=== PATIENT | male | born 1950 | race Caucasian/White ===

== ENCOUNTER 2022-05-09 20:11 | Inpatient (IN) | payer MEDICARE ==
[2022-05-09] MEDS ORDERED: Ondansetron PF 4 MG/2 ML Vial IVP PRN (23:12)
[2022-05-09] MEDS ORDERED: Nitroglycerin 0.4 MG TAB (25 Tab Bottle) SL PRN (23:12)
[2022-05-09] MEDS ORDERED: Sodium Chloride 0.9% 1,000 ML IV SCH (23:15)
[2022-05-10] MEDS ORDERED: Famotidine 20 MG TAB PO SCH (00:15)
[2022-05-10 02:18] LABS: #Eosinphils 0.1 thou/uL (0.0-0.7); #Lymphocytes 2.5 thou/uL (1.20-3.40); #Monocytes 0.6 thou/uL (0.11-0.59); #Neutrophils 3.4 thou/uL (1.40-6.50); %Basophils 0.4 % (0.0-1.0); %Eosinophils 1.3 % (0.0-10.0); %Lymphocytes 37.4 % (21.0-51.0); %Monocytes 9.3 % (0.0-10.0); %Neutrophils 51.7 % (42.0-75.0); Hemoglobin 12.9 g/dL (14.0-18.0); Mean Corpuscular HGB CONC 34.1 g/dL (32.0-36.0); Mean Corpuscular Hemoglobin 31.8 pg (27.0-31.0); Mean Corpuscular Volume 93.2 fL (78.0-98.0); Mean Platelet Volume 6.7 fL (7.4-10.4); Platelet Count 184 thou/uL (130-400); RBC Distribution Width 11.4 % (11.5-14.5); Red Blood Cell (RBC) Count 4.05 mill/uL (4.70-6.10); White Blood Cell (WBC) Count 6.6 thou/uL (4.8-10.8)
[2022-05-10 02:43] LABS: Troponin I 0.017 ng/mL (< 0.028)
[2022-05-10 02:57] LABS: Anion Gap 13 mmol/L (10-20); BUN (Urea Nitrogen) 11 mg/dL (8.4-25.7); Calc. Creatinine Clearance 83 mL/min (70-130); Calcium 9.1 mg/dL (7.8-10.44); Carbon Dioxide 26 mmol/L (23-31); Chloride 102 mmol/L (98-107); Estimated GFR 62; Glucose 126 mg/dL (83-110); Potassium 4.8 mmol/L (3.5-5.1); Sodium 136 mmol/L (136-145)
[2022-05-10] MEDS ORDERED: Lorazepam 2 MG/ML VIAL IM PRN (03:47)
[2022-05-10] MEDS ORDERED: Lorazepam 1 MG TAB PO PRN (03:47)
[2022-05-10] MEDS ORDERED: Electrolyte Replacement Protocol 1 EACH FS SCH (04:00)
[2022-05-10] MEDS: Thiamine HCl 200 MG/2 ML VIAL SLOW IVP SCH (05:50)
[2022-05-10] MEDS ORDERED: Clopidogrel Bisulfate 75 MG TAB PO SCH (09:00)
[2022-05-10] MEDS ORDERED: Enoxaparin Sodium 40 MG/0.4 ML SYRINGE SC SCH (09:00)
[2022-05-10] MEDS ORDERED: Communication Order-Pharmacy FS SCH (10:00)
[2022-05-10] MEDS: Sodium Chloride 0.9% 1,000 ML IV SCH (10:26)
[2022-05-10] MEDS ORDERED: Verapamil 5 MG/2 ML VIAL ONE (10:52)
[2022-05-10] MEDS ORDERED: Heparin 10,000 UNITS/ 10 ML VIAL ONE ×2 (10:52→12:40)
[2022-05-10] MEDS ORDERED: Nitroglycerin 100MG/250ML BOT 250 ML ONE (10:52)
[2022-05-10] MEDS ORDERED: Iopamidol 370 76% 100 ML VIAL ONE (11:19)
[2022-05-10] MEDS ORDERED: Midazolam HCl 2 mg/2 ml Vial ONE (12:22)
[2022-05-10] MEDS ORDERED: Fentanyl 100 MCG/2 ML VIAL ONE (12:22)
[2022-05-10] MEDS ORDERED: Sodium Chloride 0.9% 1,000 ML IV SCH (14:30)
[2022-05-10] MEDS: Multivit, Therapeutic 1 TAB PO SCH (17:27)
[2022-05-10] MEDS: Lisinopril 20 MG TAB PO SCH ×2 (17:27→20:27)
[2022-05-10] MEDS: Folic Acid 1 MG TAB PO SCH (17:27)
[2022-05-10] MEDS: Aspirin Chewable 81 MG TAB PO SCH (17:27)
[2022-05-10] MEDS: Carvedilol 6.25 MG TAB PO SCH ×2 (17:27→20:27)
[2022-05-10] MEDS: Rosuvastatin 20 MG TAB PO SCH (20:27)
[2022-05-10] MEDS: Acetaminophen 325 MG TAB PO PRN (23:50)
[2022-05-11] MEDS ORDERED: Lorazepam 1 MG TAB PO PRN (03:47)
[2022-05-11 04:39] LABS: #Eosinphils 0.1 thou/uL (0.0-0.7); #Lymphocytes 1.5 thou/uL (1.20-3.40); #Monocytes 0.5 thou/uL (0.11-0.59); %Basophils 0.3 % (0.0-1.0); %Eosinophils 1.8 % (0.0-10.0); %Monocytes 7.7 % (0.0-10.0); %Neutrophils 65.2 % (42.0-75.0); Mean Corpuscular HGB CONC 34.1 g/dL (32.0-36.0); Mean Corpuscular Hemoglobin 32.3 pg (27.0-31.0); Mean Corpuscular Volume 94.9 fL (78.0-98.0); Mean Platelet Volume 6.9 fL (7.4-10.4); Platelet Count 194 thou/uL (130-400); RBC Distribution Width 11.3 % (11.5-14.5); Red Blood Cell (RBC) Count 4.03 mill/uL (4.70-6.10); White Blood Cell (WBC) Count 6.1 thou/uL (4.8-10.8)
[2022-05-11] MEDS: Thiamine HCl 200 MG/2 ML VIAL SLOW IVP SCH (04:50)
[2022-05-11 04:59] LABS: ALT (SGPT) 21 U/L (8-55); AST (SGOT) 20 U/L (5-34); Albumin 3.9 g/dL (3.4-4.8); Alkaline Phosphatase 45 U/L (40-110); Anion Gap 12 mmol/L (10-20); BUN (Urea Nitrogen) 10 mg/dL (8.4-25.7); Bilirubin, Total 0.7 mg/dL (0.2-1.2); Calc. Creatinine Clearance 97 mL/min (70-130); Calcium 9.1 mg/dL (7.8-10.44); Carbon Dioxide 26 mmol/L (23-31); Chloride 102 mmol/L (98-107); Estimated GFR 75; Globulin 2.9 g/dL (2.4-3.5); Glucose 131 mg/dL (83-110); Potassium 3.9 mmol/L (3.5-5.1); Protein, Total 6.8 g/dL (5.8-8.1); Sodium 136 mmol/L (136-145)
[2022-05-11] MEDS: Folic Acid 1 MG TAB PO SCH (07:50)
[2022-05-11] MEDS: Multivit, Therapeutic 1 TAB PO SCH (07:50)
[2022-05-11] MEDS: Lisinopril 20 MG TAB PO SCH ×2 (07:50→20:21)
[2022-05-11] MEDS: Aspirin Chewable 81 MG TAB PO SCH (07:50)
[2022-05-11] MEDS: Acetaminophen 325 MG TAB PO PRN (07:50)
[2022-05-11] MEDS: Carvedilol 6.25 MG TAB PO SCH (07:50)
[2022-05-11] MEDS ORDERED: Communication Order-Pharmacy FS PRN (09:28)
[2022-05-11 10:22] LABS: Cholesterol 133 mg/dl (< 200 Desired); HDL Cholesterol 44 mg/dL (>60 Neg Risk); LDL Cholesterol, Calculated 64 mg/dL; Triglycerides 125 mg/dL (Less than 150)
[2022-05-11 10:33] LABS: Hemoglobin A1c 7.3 % (4.0-6.0)
[2022-05-11] MEDS: Sodium Chloride 0.9% 1,000 ML IV SCH (19:30)
[2022-05-11] MEDS: Metoprolol Tartrate 25 MG TAB PO SCH (20:19)
[2022-05-11] MEDS: Rosuvastatin 20 MG TAB PO SCH (20:22)
[2022-05-11] MEDS ORDERED: Calcium Carbonate 500 MG ChewTAB PO PRN (20:51)
[2022-05-11] MEDS: Famotidine 20 MG TAB PO SCH (23:08)
[2022-05-12] MEDS ORDERED: Lorazepam 1 MG TAB PO PRN (03:47)
[2022-05-12] MEDS: Thiamine HCl 200 MG/2 ML VIAL SLOW IVP SCH (04:38)
[2022-05-12] MEDS: Lisinopril 20 MG TAB PO SCH ×2 (08:59→22:21)
[2022-05-12] MEDS: Famotidine 20 MG TAB PO SCH ×2 (08:59→22:20)
[2022-05-12] MEDS: Folic Acid 1 MG TAB PO SCH (08:59)
[2022-05-12] MEDS: Metoprolol Tartrate 25 MG TAB PO SCH ×2 (09:00→22:21)
[2022-05-12] MEDS: Multivit, Therapeutic 1 TAB PO SCH (09:00)
[2022-05-12] MEDS ORDERED: Empagliflozin 10 MG TAB PO SCH (09:00)
[2022-05-12] MEDS ORDERED: CEFAZOLIN 2 GM in Sodium Chloride 0.9% 100 ML IVPB SCH (14:30)
[2022-05-12] MEDS: Rosuvastatin 20 MG TAB PO SCH (22:21)
[2022-05-13] MEDS ORDERED: Lorazepam 0.5 MG TAB PO PRN (03:47)
[2022-05-13] MEDS: Lisinopril 20 MG TAB PO SCH (06:12)
[2022-05-13] MEDS: Metoprolol Tartrate 25 MG TAB PO SCH (06:12)
[2022-05-13] MEDS ORDERED: Thiamine 100 MG TAB PO SCH (09:00)
[2022-05-13] MEDS: Famotidine 20 MG TAB PO SCH (09:02)
[2022-05-13] MEDS: Multivit, Therapeutic 1 TAB PO SCH (09:02)
[2022-05-13] MEDS: Folic Acid 1 MG TAB PO SCH (09:02)
[2022-05-13] MEDS ORDERED: Albumin 5% 500 ML ONE (10:09)
[2022-05-13] MEDS ORDERED: Dexmedetomidine 200 MCG/2 ML VIAL ONE (10:43)
[2022-05-13] MEDS ORDERED: fentaNYL Citrate/PF 100 MCG/2 ML SYRINGE ONE (10:43)
[2022-05-13] MEDS ORDERED: Midazolam HCl 5 mg/5 ml Vial ONE (10:43)
[2022-05-13] MEDS ORDERED: Phenylephrine 10 MG/ML VIAL ONE (10:43)
[2022-05-13] MEDS ORDERED: Lidocaine 1% MPF 2 ML VIAL ONE ×2 (11:05→11:38)
[2022-05-13] MEDS ORDERED: Sodium Chloride 0.9% 100 ML ONE (11:27)
[2022-05-13] MEDS ORDERED: CEFAZOLIN 2 GM VIAL ONE (11:27)
[2022-05-13] MEDS ORDERED: Cardioplegic Soln 1,000 ML BAG ONE (11:38)
[2022-05-13] MEDS ORDERED: Heparin 5,000 UNITS/ML VIAL ONE (11:38)
[2022-05-13] MEDS ORDERED: Mannitol 12.5 GM/50 ML ONE (11:38)
[2022-05-13] MEDS ORDERED: Vecuronium 10 MG VIAL ONE (11:38)
[2022-05-13] MEDS ORDERED: Rocuronium Bromide 10 MG/ML (10ML VIAL) ONE (11:38)
[2022-05-13] MEDS ORDERED: Protamine Sulfate 250 MG/25 ML VIAL ONE (11:38)
[2022-05-13] MEDS ORDERED: Potassium Chloride 60 MEQ/30 ML VIAL ONE (11:38)
[2022-05-13] MEDS ORDERED: Sodium Bicarb 50 MEQ/50 ML Abboject 8.4% SYRINGE ONE (11:38)
[2022-05-13] MEDS ORDERED: Heparin 30,000 units/30 ml VIAL ONE (11:38)
[2022-05-13] MEDS ORDERED: Papaverine 60 MG/2 ML VIAL ONE (11:38)
[2022-05-13] MEDS ORDERED: Ketorolac Tromethamine 30 MG/ML VIAL ONE (11:38)
[2022-05-13] MEDS ORDERED: Nitroglycerin 50 MG/250 ML BOT ONE (11:38)
[2022-05-13] MEDS ORDERED: Calcium Chloride 1 GM/10 ML Abboject SYRINGE ONE (11:38)
[2022-05-13] MEDS ORDERED: Thrombin 5000 UNITS/5 ML VIAL ONE (11:38)
[2022-05-13] MEDS ORDERED: Magnesium Sulfate 1 GM/2 ML VIAL ONE (11:38)
[2022-05-13] MEDS ORDERED: Lidocaine 2% PF 100 mg/5 ml Syringe ONE (11:38)
[2022-05-13] MEDS ORDERED: Aminocaproic Acid 5 GM/20 ML VIAL ONE (11:38)
[2022-05-13] MEDS ORDERED: PROPOFOL 200 MG/20 ML VIAL ONE (11:38)
[2022-05-13] MEDS ORDERED: Heparin 10,000 UNITS/1 ML VIAL 30,000 UNITS in Sodium Chloride 0.9% 1,000 ML FS SCH (11:45)
[2022-05-13] MEDS ORDERED: PHENYLEPHRINE-NS 100 MCG/ML 10 ML SYRINGE ONE (13:09)
[2022-05-13] MEDS ORDERED: Bisacodyl 5 MG TAB PO PRN (15:03)
[2022-05-13] MEDS ORDERED: Post-Op Insulin Drip Protocol IVPB ONE (15:03)
[2022-05-13] MEDS ORDERED: niCARdipine 25 MG in Sodium Chloride 0.9% 250 ML 250 ML IVPB PRN (15:03)
[2022-05-13] MEDS ORDERED: DOPamine 400 MG/D5W 250 ML 250 ML IVPB PRN (15:03)
[2022-05-13] MEDS ORDERED: Fentanyl 100 MCG/2 ML VIAL SLOW IVP PRN (15:03)
[2022-05-13] MEDS ORDERED: Mag-Al 1200 mg/1200 mg/30 ML UDCUP PO PRN (15:03)
[2022-05-13] MEDS ORDERED: Acetaminophen 325 MG TAB PO PRN (15:03)
[2022-05-13] MEDS ORDERED: hydrALAZINE 20 MG/ML VIAL SLOW IVP PRN (15:03)
[2022-05-13] MEDS ORDERED: Bisacodyl 10 MG SUPP PR PRN (15:03)
[2022-05-13] MEDS ORDERED: Ondansetron PF 4 MG/2 ML Vial IVP PRN (15:03)
[2022-05-13] MEDS ORDERED: Guaifenesin DM 100-10/5 ML UDCUP PO PRN (15:03)
[2022-05-13] MEDS ORDERED: Nitroglycerin 50 MG/250 ML BOT 250 ML IVPB PRN (15:03)
[2022-05-13] MEDS ORDERED: Morphine 2 MG/ML VIAL SLOW IVP PRN (15:03)
[2022-05-13] MEDS ORDERED: Hetastarch 6% 500 ML 500 ML IVPB PRN (15:03)
[2022-05-13] MEDS ORDERED: NOREPINEPHRINE 8 MG/250 ML-D5W 250 ML IVPB PRN (15:03)
[2022-05-13] MEDS ORDERED: Nitroglycerin 50 MG/250 ML BOT 250 ML ONE (15:14)
[2022-05-13 15:19] LABS: #Lymphocytes 0.7 thou/uL (1.20-3.40); #Monocytes 0.4 thou/uL (0.11-0.59); #Neutrophils 7.2 thou/uL (1.40-6.50); %Basophils 0.2 % (0.0-1.0); %Eosinophils 0.5 % (0.0-10.0); %Lymphocytes 8.6 % (21.0-51.0); %Monocytes 4.9 % (0.0-10.0); %Neutrophils 85.8 % (42.0-75.0); Hemoglobin 12.3 g/dL (14.0-18.0); Mean Corpuscular HGB CONC 34.2 g/dL (32.0-36.0); Mean Corpuscular Hemoglobin 32.9 pg (27.0-31.0); Mean Corpuscular Volume 96.2 fL (78.0-98.0); Mean Platelet Volume 6.8 fL (7.4-10.4); Platelet Count 134 thou/uL (130-400); RBC Distribution Width 11.3 % (11.5-14.5); Red Blood Cell (RBC) Count 3.73 mill/uL (4.70-6.10); White Blood Cell (WBC) Count 8.4 thou/uL (4.8-10.8)
[2022-05-13] MEDS ORDERED: Dextrose 50% Abboject 50 ML SYRINGE SLOW IVP PRN (15:30)
[2022-05-13] MEDS: Fentanyl 100 MCG/2 ML VIAL SLOW IVP PRN ×3 (15:30→23:04)
[2022-05-13] MEDS ORDERED: HUMULIN R 100 UNITS in Sodium Chloride 0.9% 100 ML IVPB SCH (15:30)
[2022-05-13] MEDS ORDERED: Dextrose 5% in Water 1,000 ML IV PRN (15:30)
[2022-05-13 15:33] LABS: INR-International Normal Ratio 1.2; PTT 34.7 sec (22.9-36.1); Prothrombin Time 15.7 sec (12.0-14.7)
[2022-05-13 15:33] LABS: Actual Bicarbonate (HCO3a) 17.2 mEq/L (22-28); Base Excess (BEa) -7.2 mEq/L (-2.0 to +3.0); CO2 Tension 31.7 mmHg (35.0-45.0); Carboxyhemoglobin (COHb) 0.3 gm% (0.0-3.0); Hemoglobin (Hb) 12.6 g/dL (14.0-18.0); O2 Tension (PaO2), arterial 138.1 mmHg (> 70.0); Potassium - ABG Lab 3.99 mmol/L (3.70-5.30); pH, Arterial 7.35 (7.35-7.45)
[2022-05-13 15:34] LABS: ALV-art Gradient 178.775 mmHg (0-20); Puncture Site Arterial Line
[2022-05-13] MEDS: Lactated Ringer's 1,000 ML IV SCH (15:35)
[2022-05-13] MEDS: Insulin Regular 300 UNITS/3 ML VIAL SC PRN ×3 (15:39→23:13)
[2022-05-13 15:45] LABS: Anion Gap 17 mmol/L (10-20); BUN (Urea Nitrogen) 13 mg/dL (8.4-25.7); Calc. Creatinine Clearance 99 mL/min (70-130); Calcium 7.9 mg/dL (7.8-10.44); Carbon Dioxide 18 mmol/L (23-31); Chloride 108 mmol/L (98-107); Estimated GFR 77; Glucose 138 mg/dL (83-110); Potassium 4.1 mmol/L (3.5-5.1); Sodium 139 mmol/L (136-145)
[2022-05-13 17:08] LABS: Actual Bicarbonate (HCO3a) 15.5 mEq/L (22-28); CO2 Tension 29.6 mmHg (35.0-45.0); Calcium, Ionized (arterial) 1.08 mmol/L (1.12-1.30); Carboxyhemoglobin (COHb) 0.2 gm% (0.0-3.0); Hemoglobin (Hb) 13.1 g/dL (14.0-18.0); O2 Tension (PaO2), arterial 143.8 mmHg (> 70.0); Potassium - ABG Lab 3.97 mmol/L (3.70-5.30); pH, Arterial 7.34 (7.35-7.45)
[2022-05-13 17:09] LABS: Puncture Site Arterial Line
[2022-05-13] MEDS: Ketorolac Tromethamine 30 MG/ML VIAL IVP SCH ×2 (17:17→23:06)
[2022-05-13] MEDS ORDERED: Amiodarone 200 MG TAB PO SCH (20:00)
[2022-05-13] MEDS: CEFAZOLIN 2 GM in Sodium Chloride 0.9% 100 ML IVPB SCH (20:09)
[2022-05-13] MEDS: Famotidine/PF 20 mg/2ml Vial SLOW IVP SCH (20:10)
[2022-05-13 21:01] LABS: Hemoglobin 10.8 g/dL (14.0-18.0)
[2022-05-13] MEDS: Potassium Chloride 20 MEQ/100 ML PREMIX BAG IVPB PRN (22:20)
[2022-05-14] MEDS: Lactated Ringer's 1,000 ML IV SCH (01:02)
[2022-05-14] MEDS: HYDROcodone/Acetaminophen 5/325 mg Tablet PO PRN ×4 (01:32→20:46)
[2022-05-14] MEDS: CEFAZOLIN 2 GM in Sodium Chloride 0.9% 100 ML IVPB SCH ×2 (03:47→12:51)
[2022-05-14 04:02] LABS: #Lymphocytes 0.7 thou/uL (1.20-3.40); #Monocytes 0.5 thou/uL (0.11-0.59); #Neutrophils 5.3 thou/uL (1.40-6.50); %Basophils 0.1 % (0.0-1.0); %Eosinophils 0.1 % (0.0-10.0); %Monocytes 8.4 % (0.0-10.0); %Neutrophils 81.3 % (42.0-75.0); Hemoglobin 10.1 g/dL (14.0-18.0); Mean Corpuscular HGB CONC 34.6 g/dL (32.0-36.0); Mean Corpuscular Hemoglobin 32.9 pg (27.0-31.0); Mean Corpuscular Volume 95.2 fL (78.0-98.0); Mean Platelet Volume 7.2 fL (7.4-10.4); Platelet Count 134 thou/uL (130-400); RBC Distribution Width 11.3 % (11.5-14.5); Red Blood Cell (RBC) Count 3.06 mill/uL (4.70-6.10); White Blood Cell (WBC) Count 6.5 thou/uL (4.8-10.8)
[2022-05-14 04:28] LABS: Anion Gap 14 mmol/L (10-20); BUN (Urea Nitrogen) 19 mg/dL (8.4-25.7); Calc. Creatinine Clearance 76 mL/min (70-130); Calcium 8.2 mg/dL (7.8-10.44); Carbon Dioxide 22 mmol/L (23-31); Chloride 106 mmol/L (98-107); Estimated GFR 56; Glucose 115 mg/dL (83-110); Potassium 3.8 mmol/L (3.5-5.1); Sodium 138 mmol/L (136-145)
[2022-05-14] MEDS: Ketorolac Tromethamine 30 MG/ML VIAL IVP SCH ×4 (05:32→23:58)
[2022-05-14] MEDS: Potassium Chloride 20 MEQ/100 ML PREMIX BAG IVPB PRN ×2 (05:33→05:34)
[2022-05-14] MEDS: Aspirin 325 MG TAB PO SCH (08:51)
[2022-05-14] MEDS: Amiodarone 200 MG TAB PO SCH ×2 (08:51→20:45)
[2022-05-14] MEDS: Famotidine/PF 20 mg/2ml Vial SLOW IVP SCH (08:51)
[2022-05-14] MEDS: Polyethylene Glycol 3350 17 GM Packet PO SCH (08:52)
[2022-05-14] MEDS: Magnesium 2 GM/50 ML(in water) 2 GM in Premix Bag 1 BAG IVPB SCH (08:52)
[2022-05-14] MEDS: BEER 1 CAN PO SCH ×2 (12:03→17:33)
[2022-05-14] MEDS ORDERED: ALPRAZolam 0.5 MG TAB PO SCH (16:45)
[2022-05-14] MEDS: Carvedilol 3.125 MG TAB PO SCH (16:52)
[2022-05-14] MEDS ORDERED: Lisinopril 5 MG TAB PO SCH (18:00)
[2022-05-15] MEDS: HYDROcodone/Acetaminophen 5/325 mg Tablet PO PRN ×2 (03:31→21:28)
[2022-05-15] MEDS: ALPRAZolam 0.5 MG TAB PO PRN ×3 (04:12→23:28)
[2022-05-15 04:17] LABS: Anion Gap 14 mmol/L (10-20); BUN (Urea Nitrogen) 17 mg/dL (8.4-25.7); Calc. Creatinine Clearance 94 mL/min (70-130); Calcium 8.4 mg/dL (7.8-10.44); Carbon Dioxide 22 mmol/L (23-31); Chloride 103 mmol/L (98-107); Estimated GFR 73; Glucose 103 mg/dL (83-110); Potassium 3.9 mmol/L (3.5-5.1); Sodium 135 mmol/L (136-145)
[2022-05-15] MEDS: Ketorolac Tromethamine 30 MG/ML VIAL IVP SCH ×4 (05:36→23:29)
[2022-05-15 05:45] VITALS: BMI 30.1
[2022-05-15] MEDS: Amiodarone 200 MG TAB PO SCH ×2 (09:39→21:29)
[2022-05-15] MEDS: Carvedilol 3.125 MG TAB PO SCH ×2 (09:39→17:08)
[2022-05-15] MEDS: Magnesium 2 GM/50 ML(in water) 2 GM in Premix Bag 1 BAG IVPB SCH (09:40)
[2022-05-15] MEDS: BEER 1 CAN PO SCH ×2 (09:40→17:08)
[2022-05-15] MEDS: Lisinopril 5 MG TAB PO SCH (09:40)
[2022-05-15] MEDS: Polyethylene Glycol 3350 17 GM Packet PO SCH (09:40)
[2022-05-15] MEDS: Aspirin 325 MG TAB PO SCH (09:40)
[2022-05-15] MEDS ORDERED: Bisacodyl 5 MG TAB PO PRN (10:30)
[2022-05-15] MEDS ORDERED: Guaifenesin DM 100-10/5 ML UDCUP PO PRN (10:30)
[2022-05-15] MEDS ORDERED: Mag-Al 1200 mg/1200 mg/30 ML UDCUP PO PRN (10:30)
[2022-05-15] MEDS ORDERED: Bisacodyl 10 MG SUPP PR PRN (10:30)
[2022-05-15] MEDS ORDERED: Zolpidem Tartrate 5 MG TAB PO PRN (10:30)
[2022-05-15] MEDS ORDERED: diphenhydrAMINE 25 MG CAP PO PRN (10:30)
[2022-05-15] MEDS ORDERED: Mineral Oil ENEMA PR PRN (10:30)
[2022-05-15] MEDS ORDERED: Nitroglycerin 0.4 MG TAB (25 Tab Bottle) SL PRN (10:30)
[2022-05-15] MEDS ORDERED: Milk Of Magnesia 30 ML UDCUP PO PRN (10:30)
[2022-05-15] MEDS ORDERED: BEER 1 CAN PO SCH (11:00)
[2022-05-16] MEDS: HYDROcodone/Acetaminophen 5/325 mg Tablet PO PRN ×2 (03:53→21:06)
[2022-05-16] MEDS: Ketorolac Tromethamine 30 MG/ML VIAL IVP SCH ×3 (05:39→17:21)
[2022-05-16] MEDS ORDERED: Aspirin 325 mg Enteric Coated Tablet PO SCH (09:00)
[2022-05-16] MEDS: Carvedilol 3.125 MG TAB PO SCH (10:17)
[2022-05-16] MEDS: Amiodarone 200 MG TAB PO SCH ×2 (10:18→21:04)
[2022-05-16] MEDS: Lisinopril 5 MG TAB PO SCH ×2 (10:18→21:04)
[2022-05-16] MEDS: Aspirin 325 MG TAB PO SCH (10:18)
[2022-05-16] MEDS: BEER 1 CAN PO SCH ×2 (10:19→17:38)
[2022-05-16] MEDS: Polyethylene Glycol 3350 17 GM Packet PO SCH (10:19)
[2022-05-16] MEDS: Carvedilol 6.25 MG TAB PO SCH (17:21)
[2022-05-16] MEDS: Rosuvastatin 20 MG TAB PO SCH (21:04)
[2022-05-17] MEDS ORDERED: Potassium Chloride 20 MEQ TAB PO SCH (07:00)
[2022-05-17] MEDS ORDERED: Furosemide 40 MG/4 ML VIAL SLOW IVP SCH (07:00)
[2022-05-17] MEDS: Carvedilol 6.25 MG TAB PO SCH ×2 (10:00→17:53)
[2022-05-17] MEDS: Amiodarone 200 MG TAB PO SCH ×2 (10:00→21:50)
[2022-05-17] MEDS: Lisinopril 5 MG TAB PO SCH ×2 (10:02→21:50)
[2022-05-17] MEDS: Polyethylene Glycol 3350 17 GM Packet PO SCH (10:02)
[2022-05-17] MEDS: Magnesium Oxide 400 MG TAB PO SCH (10:02)
[2022-05-17] MEDS: Aspirin 325 MG TAB PO SCH (10:02)
[2022-05-17] MEDS: BEER 1 CAN PO SCH ×2 (10:03→17:53)
[2022-05-17] MEDS: ALPRAZolam 0.5 MG TAB PO PRN (13:21)
[2022-05-17] MEDS: Rosuvastatin 20 MG TAB PO SCH (21:50)
[2022-05-18] MEDS ORDERED: Furosemide 40 MG TAB PO SCH (07:30)
[2022-05-18] MEDS ORDERED: Amiodarone 200 MG TAB PO SCH (09:00)
[2022-05-18] MEDS: Carvedilol 6.25 MG TAB PO SCH ×2 (09:26→17:57)
[2022-05-18] MEDS: Lisinopril 5 MG TAB PO SCH (09:27)
[2022-05-18] MEDS: Magnesium Oxide 400 MG TAB PO SCH (09:27)
[2022-05-18] MEDS: Aspirin 325 MG TAB PO SCH (09:27)
[2022-05-18] MEDS: Polyethylene Glycol 3350 17 GM Packet PO SCH (09:30)
[2022-05-18] MEDS: BEER 1 CAN PO SCH ×2 (09:30→17:58)
[2022-05-18 16:45] VITALS: TEMP 99
[2022-05-18 17:58] VITALS: BP 138/69
[2022-05-18] MEDS ORDERED: Mometasone 200 MCG/Formoterol 5 MCG 120 PUFF INHALER INH SCH (18:30)
== END 2022-05-18 18:59 | DRG 234 ==
LOC: 2SW 20:43 → OBSVTOIN 05-10 16:08 → CCU 05-13 13:06 → 2NO 05-15 10:41
PROVIDERS: ADMIT Internal Medicine; ATTEND Internal Medicine
PROC: B2111ZZ Fluoroscopy of Multiple Coronary Arteries using Low Osmolar Contrast (ICD-10-PCS; 2022-05-10)
PROC: 02100Z9 Bypass Coronary Artery, One Artery from Left Internal Mammary, Open Approach (ICD-10-PCS; principal; 2022-05-13)
PROC: 021109W Bypass Coronary Artery, Two Arteries from Aorta with Autologous Venous Tissue, Open Approach (ICD-10-PCS; 2022-05-13)
PROC: 06BQ4ZZ Excision of Left Saphenous Vein, Percutaneous Endoscopic Approach (ICD-10-PCS; 2022-05-13)
PROC: 5A1221Z Performance of Cardiac Output, Continuous (ICD-10-PCS; 2022-05-13)
PROC: 02L70ZK Occlusion of Left Atrial Appendage, Open Approach (ICD-10-PCS; 2022-05-13)
DX: I25.110 Atherosclerotic heart disease of native coronary artery with unstable angina pectoris (principal); N17.9 Acute kidney failure, unspecified; Z20.822 Contact with and (suspected) exposure to COVID-19; I10 Essential (primary) hypertension; E78.5 Hyperlipidemia, unspecified; F10.10 Alcohol abuse, uncomplicated; I34.0 Nonrheumatic mitral (valve) insufficiency; E11.9 Type 2 diabetes mellitus without complications; J84.10 Pulmonary fibrosis, unspecified; I48.91 Unspecified atrial fibrillation; Z79.82 Long term (current) use of aspirin; I25.2 Old myocardial infarction; Z95.5 Presence of coronary angioplasty implant and graft; Z82.49 Family history of ischemic heart disease and other diseases of the circulatory system; Z87.891 Personal history of nicotine dependence
CPT/HCPCS: 36415; 36416; 36430; 71045; 71046; 80048; 80053; 80061; 82805; 83036; 84484; 85025; 85347; 85610; 85730; 86850; 86900; 86901; 93005; 93010; 93306; 93454; 93571; 93798; 93880; 94002; 94150; 94640; 94760; 94799; 96374; 99152; 99153; C1751; C1769; C1887; C1894; G0378; J0153; J0360; J0690; J1642; J1644; J1815; J1885; J1940; J2001; J2150; J2250; J2370; J2440; J2704; J2720; J3010; J3370; J3411; J3475; J3480; J3490; J7050; J7120; J7620; P9045; Q9967; S0017; S0028